=== PATIENT | female | born 1990 | race Caucasian/White ===

== ENCOUNTER 2016-09-25 23:31 | Emergency (ER) | payer SELFPAY ==
[2016-09-25 23:49] VITALS: RESP 16; TEMP 97.4
--- NOTE | 2016-09-26 01:11 | ED ---
General Adult HPI - General Source: patient, family, police, RN notes reviewed Mode of arrival: ambulatory Limitations: no limitations <Fercho Ann - Last Filed: 09/26/16 01:12> <Morris Delanye - Last Filed: 09/26/16 05:48> - General Chief complaint: Psychiatric Symptoms Stated complaint: petition Time Seen by Provider: 09/26/16 00:23 - History of Present Illness Initial comments: Chief complaint and history of present illness is a 26-year-old female here with her sister. The patient had proximal 6 beers this evening breath alcohol use 0.118. Patient states that her boyfriend talk to an old girlfriend of his she got angry. She called a friend and told the friend that (Fercho Ann) - Related Data Home Medications Medication Instructions Recorded Confirmed No Known Home Medications [No 10/06/14 09/25/16 Known Home Medications] Allergies Allergy/AdvReac Type Severity Reaction Status Date / Time No Known Allergies Allergy Verified 09/25/16 23:49 Review of Systems ROS Other: All systems not noted in ROS Statement are negative. <Fercho Ann - Last Filed: 09/26/16 01:12> ROS Other: All systems not noted in ROS Statement are negative. <Morris Delaney - Last Filed: 09/26/16 05:48> ROS Statement: Those systems with pertinent positive or pertinent negative responses have been documented in the HPI. Review of systems currently no headache or chest pain or shortness of breath no GI/ problems and denying any depression or psychological issues or if she or problems at this time denies any suicidal thoughts. States she drank too much and said things he shouldn't have said didn't mean. All systems reviewed. Past medical problems depression proximally one year ago and lasted several months. History includes G3 para 2 with one spontaneous . Not at this time. Surgeries 1 D&C and ear tubes as an . Family history father has prostate cancer. Patient denies ALLERGIES denies smoking drinks approximately 6 beers per week. (Fercho Ann) Past Medical History Additional Past Medical History / Comment(s): OB history: First was a vaginal delivery 7#14 oz in 2009. Second was a spontaneous . This is her third and she's had care with me since 10 weeks gestation. Her blood type is A+, antibodies negative, rubella immune, RPR nonreactive, hepatitis B-. Normal 1 hour glucose tolerance test and GBS positive. History of Any Multi-Drug Resistant Organisms: None Reported Past Surgical History: No Surgical Hx Reported Additional Past Surgical History / Comment(s): pt had d & c in september, Past Anesthesia/Blood Transfusion Reactions: No Reported Reaction Additional Past Anesthesia/Blood Transfusion Reaction / Comment(s): never had anesthesia Past Psychological History: No Psychological Hx Reported Smoking Status: Never smoker Past Alcohol Use History: Occasional Past Drug Use History: None Reported - Past Family History Father Family Medical History: Hypertension <Fercho Ann - Last Filed: 09/26/16 01:12> General Exam Limitations: no limitations <Fercho Ann - Last Filed: 09/26/16 01:12> <Morris Delaney - Last Filed: 09/26/16 05:48> - General Exam Comments Initial Comments: General: The patient is awake and alert, in no distress, and does not appear acutely ill. Currently denying any thoughts of hurting herself. States she hasn't wanted to drink fairly when she made those statements to friends that she wanted to hurt herself. She denying at this time. Her sisters at bedside stating she does not believe her sister meant it feels comfortable if she goes home with her. Vital signs show temperature 97.4 pulse 80 respiratory rate 16 pulse ox 90% room air blood pressure 170 over a 9. Elevated systolic and diastolic noted. The patient will be advised to follow-up with her family physician within the next 1-4 weeks. Eye: Pupils are equal, round and reactive to light, extra-ocular movements are intact ; there is normal conjunctiva bilaterally. No signs of icterus. Ears, nose, mouth and throat: There are moist mucous membranes and no oral lesions. Neck: The neck is supple, there is no tenderness , no anterior cervical lymphadenopathy. Cardiovascular: There is a regular rate and rhythm. No murmur, rub or gallop is appreciated. Respiratory: Lungs are clear to auscultation, respirations are non-labored, breath sounds are equal. No wheezes, stridor, rales, or rhonchi. Gastrointestinal: Soft, non-distended, non-tender abdomen without masses or organomegaly noted. There is no rebound or guarding present. No CVA tenderness. Bowel sounds are unremarkable. Back: There is no tenderness to palpation in the midline. There is no obvious deformity. No rashes noted. Musculoskeletal: Normal ROM, no tenderness, There is no pedal edema. There is no calf tenderness or swelling. Sensation intact. Pulses equal bilaterally 2+. Neurological: CN II-XII intact, There are no obvious motor or sensory deficits. Coordination appears grossly intact. Speech is normal. No neuro deficits Skin: Skin is warm and dry and no rashes or lesions are noted. Psychiatric: Cooperative, appropriate mood & affect, normal judgment. States she had intoxicated earlier wanted to hurt her boyfriend because he talked little girl friend. She made statements of friend and her friend fill out a petition because she is afraid she might harm herself. Patient's denying any problems at this time. Patient is laughing staying she made a stupid statement and is willing to talk to psychiatric nurse. (Fercho Ann) Medical Decision Making <Fercho Ann - Last Filed: 09/26/16 01:12> <Morris Delaney - Last Filed: 09/26/16 05:48> - Medical Decision Making Final disposition will be determined by Dr. Delaney. (Fercho Ann) Patient was seen by mental health services who recommends discharge. Patient reexamined and resting comfortably at bedside. Patient denies suicidal ideation and does contract for safety. (Morris Delaney) - Lab Data Lab Results 09/25/16 09/25/16 Range/Units 23:55 23:55 Urine HCG, Qual Not Detected (Not Detectd) Urine Opiates Screen Not Detected (NotDetected) Ur Oxycodone Screen Not Detected (NotDetected) Urine Methadone Screen Not Detected (NotDetected) Ur Propoxyphene Screen Not Detected (NotDetected) Ur Barbiturates Screen Not Detected (NotDetected) U Tricyclic Antidepress Not Detected (NotDetected) Ur Phencyclidine Scrn Not Detected (NotDetected) Ur Amphetamines Screen Not Detected (NotDetected) U Methamphetamines Scrn Not Detected (NotDetected) U Benzodiazepines Scrn Not Detected (NotDetected) Urine Cocaine Screen Not Detected (NotDetected) U Marijuana (THC) Screen Not Detected (NotDetected) Disposition <Fercho Ann - Last Filed: 09/26/16 01:12> <Morris Delaney - Last Filed: 09/26/16 05:48> Clinical Impression: Alcohol intoxication, Depression Disposition: HOME SELF-CARE Condition: Stable Instructions: Depression (ED), Suicide Prevention for Adults (ED), Alcohol Intoxication (ED) Additional Instructions: Avoid alcohol. Please follow-up with your primary care physician in the next day or 2 for recheck. Return for thoughts of harming herself or others, worsening symptoms or other concerns. Referrals: Jody Hernandez DO [Primary Care Provider] - 1-2 days Nicholas Win DO [Medical Doctor] - 1-2 days
[2016-09-26 06:09] VITALS: BP 129/77; PULSE 78
== END 2016-09-26 06:08 | disposition home or self-care (01) ==
LOC: EC 23:31
DX: F10.129 Alcohol abuse with intoxication, unspecified (principal); Y90.5 Blood alcohol level of 100-119 mg/100 ml
CPT/HCPCS: 80306; 81025; 82075; 99284

== ENCOUNTER 2018-01-12 12:41 | Outpatient (CLI) | payer OTHER ==
[2018-01-12 13:21] VITALS: BP 116/76; PULSE 91; RESP 16; TEMP 97.8
--- NOTE | 2018-01-12 16:41 | P.MSEPDOC ---
Presenting Problems - Arrival Data Date of Arrival on Unit: 01/12/18 Time of Arrival on Unit: 12:40 Mode of Transport: Ambulatory - Complaint OB-Reason for Admission/Chief Complaint: Rule Out PROM Comment: Pt states clear fluid at 0915 following intercourse, no continues leaking, did not have to wear pad or change underwear throughout day. Medical History - Information : 4 Para: 2 Term: 2 : 0 Abortions: Spontaneous or Elective: 1 Number of Living Children: 2 - Gestational Age Gestational Age by ZAK (wks/days): 35 Weeks and 1 Days Review of Systems - Review of Systems Constitutional: No problems Breast: No problems ENT: No problems Cardiovascular: No problems Respiratory: No problems Gastrointestinal: No problems Genitourinary: No problems Musculoskeletal: No problems Neurological: No problems Skin: No problems Vital Signs - Temperature Temperature: 97.8 F Temperature Source: Temporal Artery Scan - Pulse Pulse Oximetery Pulse Rate: 91 Pulse Assessment Method: Pulse Oximetry - Respirations Respiratory Rate: 16 Oxygen Delivery Method: Room Air O2 Sat by Pulse Oximetry: 96 - Blood Pressure Right Arm Sitting Blood Pressure: 116/76 Blood Pressure Mean: 89 Blood Pressure Source: Automatic Cuff Medical Screen Scoring (Pre) - Cervical Exam Dilation: Exam Deferred Effacement: Exam Deferred Membranes: Intact - Uterine Contractions Frequency: N/A Duration: N/A Intensity: N/A - Maternal Vital Signs Maternal Temperature: N/A Maternal Blood Pressure: N/A Signs of Preeclampsia: N/A Maternal Respirations: N/A - Maternal Trauma Maternal Trauma: N/A - Assessment Baseline FHR: 135 Heart Rate - NICHD Category: Category I (Normal) = 0 NST: Reactive Position: N/A Station: N/A - Total Score Total Score (Pre): 0 - Level of Risk Level of Risk: N/A Physician Notification (Pre) - Physician Notified Physician Notified Date: 01/12/18 Physician Notified Time: 13:10 Physician/Practitioner Notifed:: Albino Spoke With: Albino - Notification Comment Comment: Spk c\Dr. Posada, advsd , 35 07/23, possible PROM after intercourse , amnisure negative, no contractions, reactive NST. Appt with Dr. Hernandez Monday. Disposition - Disposition OB Disposition: Physician follow up in office, Discharge to home, Written follow up instructions reviewed Discharge Date: 01/12/18 Discharge Time: 13:15 I agree with the RN Medical Screening Exam: Yes Risk & Benefit of care provided described in d/c instruction: Yes Diagnosis: FALSE LABOR BEFORE 37 COMPLETED WEEKS OF GEST, THIRD TRI
== END 2018-01-12 13:15 | disposition home or self-care (01) ==
LOC: FBPOP 12:41
PROVIDERS: ATTEND Obstetrics & Gynecology
DX: O47.03 False labor before 37 completed weeks of gestation, third trimester (principal); Z3A.35 35 weeks gestation of pregnancy
CPT/HCPCS: 59025; 84112; 99213

== ENCOUNTER 2018-02-19 16:22 | Inpatient (IN) | payer OTHER ==
[2018-02-19] MEDS ORDERED: METHYLERGONOVINE 0.2 MG/ML 1 ML AMP IM PRN (16:26)
[2018-02-19] MEDS ORDERED: LIDOCAINE 1% (PF) 10 MG/ML (30 ML SDV) SQ PRN (16:26)
[2018-02-19] MEDS ORDERED: TERBUTALINE 1 MG/ML VIAL SQ PRN (16:26)
[2018-02-19] MEDS ORDERED: CARBOPROST TROMETHAMINE 250 MCG/ML 1 ML AMP IM PRN (16:26)
[2018-02-19] MEDS ORDERED: OXYTOCIN 10 UNIT/ML 1 ML VIAL IM PRN (16:26)
[2018-02-19] MEDS ORDERED: OXYTOCIN 20 UNITS/1000 ML NS 1,000 ML IV SCH ×2 (16:30→18:00)
[2018-02-19] MEDS ORDERED: AMPICILLIN 2,000 MG in SODIUM CHLORIDE 0.9% 100 ML IVPB STA (16:34)
[2018-02-19 16:48] VITALS: BMI 30.4
--- NOTE | 2018-02-19 16:50 | P.HPOB ---
History of Present Illness H&P Date: 02/19/18 Chief Complaint: Labor 27 year old presents at 40 weeks 4 days in labor. Her cervix is 6 cm dilated, 100%effaced and -2 station. She is kerry irregularly and heart tones are 120-125 with moderate variability and reactive. Review of Systems All systems: negative Constitutional: Denies chills, Denies fever Eyes: denies blurred vision, denies pain Ears, nose, mouth and throat: Denies headache, Denies sore throat Cardiovascular: Denies chest pain, Denies shortness of breath Respiratory: Denies cough Gastrointestinal: Denies abdominal pain, Denies diarrhea, Denies nausea, Denies vomiting Genitourinary: Denies dysuria, Denies hematuria Musculoskeletal: Denies myalgias Integumentary: Denies pruritus, Denies rash Neurological: Denies numbness, Denies weakness Psychiatric: Denies anxiety, Denies depression Endocrine: Denies fatigue, Denies weight change Past Medical History Additional Past Medical History / Comment(s): OB history: First was a vaginal delivery 7#14 oz in 2009. Second was a spontaneous . Third was a vaginal delivery 7#11oz. This is her fourth and she's had care with me since 14 weeks gestation. Her blood type is A+, antibodies negative, rubella non-immune, RPR nonreactive, hepatitis B-. Normal 1 hour glucose tolerance test and GBS positive. History of Any Multi-Drug Resistant Organisms: None Reported Additional Past Surgical History / Comment(s): pt had d & c in september, Past Anesthesia/Blood Transfusion Reactions: No Reported Reaction Past Psychological History: No Psychological Hx Reported Smoking Status: Never smoker Past Alcohol Use History: None Reported Past Drug Use History: None Reported - Past Family History Father Family Medical History: Hypertension Medications and Allergies Home Medications Medication Instructions Recorded Confirmed Type Pedi Multivit No.25/Folic Acid 300 mcg PO DAILY 02/19/18 02/19/18 History [Flintstones Multivit Chew Tab] Allergies Allergy/AdvReac Type Severity Reaction Status Date / Time No Known Allergies Allergy Verified 02/19/18 16:32 Exam Osteopathic Statement: *. No significant issues noted on an osteopathic structural exam other than those noted in the History and Physical/Consult. Intake and Output 02/19/18 02/19/18 02/19/18 06:59 14:59 22:59 Other: Weight 83.007 kg Heart: Regular rate and rhythm Lungs: Clear to auscultation bilaterally Abdomen: Soft, nontender Extremities: Negative Homans sign Assessment and Plan (1) Normal labor Current Visit: Yes Status: Acute Code(s): O80 - ENCOUNTER FOR FULL-TERM UNCOMPLICATED DELIVERY; Z37.9 - OUTCOME OF DELIVERY, UNSPECIFIED SNOMED Code(s ): 82494636 Plan: 1. Admit to family place 2. Antibiotics for GBS prophylaxis 3. Epidural for pain management 4. Anticipate normal vaginal delivery
[2018-02-19 16:52] LABS: Basophils % (A) 0 %; Eosinophils # (A) 0.1 k/uL (0-0.7); Eosinophils % (A) 1 %; HCT 34.9 % (34.0-46.0); HGB 10.8 gm/dL (11.4-16.0); Lymphocytes # (A) 1.7 k/uL (1.0-4.8); Lymphocytes % (A) 20 %; MCH 27.1 pg (25.0-35.0); MCV 87.1 fL (80.0-100.0); Monocytes # (A) 0.4 k/uL (0-1.0); Monocytes % (A) 5 %; Neutrophils # (A) 5.7 k/uL (1.3-7.7); Neutrophils % (A) 69 %; Platelet Count 268 k/uL (150-450); RBC 4.01 m/uL (3.80-5.40); RDW 14.2 % (11.5-15.5); WBC 8.2 k/uL (3.8-10.6)
[2018-02-19] MEDS: LACTATED RINGERS 1,000 ML IV SCH ×2 (16:54→16:59)
[2018-02-19] MEDS ORDERED: LANOLIN CREAM 5 GM TUBE TOPICAL PRN (17:49)
[2018-02-19] MEDS ORDERED: SIMETHICONE 80 MG CHEWABLE PO PRN (17:49)
[2018-02-19] MEDS ORDERED: diphenhydrAMINE 25 MG CAP PO PRN (17:49)
[2018-02-19] MEDS ORDERED: IBUPROFEN 600 MG TAB PO PRN (17:49)
[2018-02-19] MEDS ORDERED: WITCH HAZEL 1 EACH MED..PAD TOPICAL PRN (17:49)
[2018-02-19] MEDS ORDERED: ZOLPIDEM 5 MG TAB PO PRN (17:49)
[2018-02-19] MEDS ORDERED: HYDROcodone/APAP 5-325MG 1 EACH TAB PO PRN (17:49)
[2018-02-19] MEDS ORDERED: diphenhydrAMINE 50 MG CAP PO PRN (17:49)
[2018-02-19] MEDS ORDERED: diphenhydrAMINE 50 MG/ML 1 ML VIAL IVP PRN ×2 (17:49)
[2018-02-19] MEDS ORDERED: ACETAMINOPHEN TAB 325 MG TAB PO PRN (17:49)
[2018-02-19] MEDS ORDERED: HYDROCORTISONE 2.5% RECTAL CREAM 30 GM TUBE RECTAL PRN (17:49)
[2018-02-19] MEDS ORDERED: BENZOCAINE/MENTHOL SPRAY 1 GM/SPRAY AEROSOL TOPICAL PRN (17:49)
[2018-02-19] MEDS ORDERED: ROPIVACAINE 100 MG, fentaNYL (PF) 200 MCG in SODIUM CHLORIDE 0.9% 76 ML EPIDURAL ONE (18:48)
[2018-02-19] MEDS: SENNOSIDES-DOCUSATE SODIUM 1 EACH TAB PO SCH (20:27)
[2018-02-19] MEDS ORDERED: AMPICILLIN 1,000 MG in SODIUM CHLORIDE 0.9% 50 ML IVPB SCH (21:00)
--- NOTE | 2018-02-20 08:42 | P.PROBDLV ---
Vaginal Delivery Note - . Vaginal Delivery Note: 27-year-old presents at 40 weeks and 4 days in active labor. Her cervix is 6 cm dilated, 100% effaced, and -2 station. She is kerry irregularly. heart tones 120-125 with moderate variability and reactive. She did get an epidural for pain control and IV antibiotics were started for GBS prophylaxis. Amniotomy was performed at 1730, clear fluid noted. At this time she became completely dilated at 1733. She pushed, and delivered a viable female infant over intact perineum under epidural anesthesia at 1739. Head delivered OA, anterior shoulder delivered gentle downward traction, but posterior shoulder and rest of body. Nose and mouth bulb suctioned, cord clamped and cut, placed on mother's abdomen. Apgars 9, 10, weight 7 lbs. 13 oz. Placenta delivered spontaneously, intact with three-vessel cord at 1744. Vagina, cervix, and perineum were inspected. No lacerations noted. Estimated blood loss 100 mL. Mother and baby in stable condition.
--- NOTE | 2018-02-20 08:44 | P.PNOBGVD ---
Subjective - Subjective Principal diagnosis: Status post normal vaginal delivery day #1 Interval history: Patient seen and examined. She denies nausea, vomiting, chest pain, shortness of breath or calf pain. Patient reports: Reports appetite normal, Reports voiding normally, Reports pain well controlled, Reports ambulating normally [place]: doing well Objective - Latest Vital Signs Latest vital signs: Vital Signs Temp Pulse Resp BP Pulse Ox 02/19/18 20:00 82 15 149/88 02/19/18 19:19 58 L 15 129/84 02/19/18 18:49 73 17 125/76 02/19/18 18:34 98.0 F 75 18 119/77 02/19/18 18:19 82 17 130/82 02/19/18 18:04 98.0 F 82 18 124/73 96 02/19/18 17:49 82 18 124/73 96 02/19/18 16:32 97.6 F 86 18 140/94 98 Intake and Output 02/19/18 02/20/18 02/20/18 22:59 06:59 14:59 Other: # Voids 1 Weight 83.007 kg - Exam Lungs: bilateral: normal Chest: Normal S1, Normal S2 Extremities: Present: normal Abdomen: Present: normal appearance, soft Uterus: Present: normal, firm - Labs Labs: Abnormal Lab Results - Last 24 Hours (Table) 02/19/18 Range/Units 16:35 Hgb 10.8 L (11.4-16.0) gm/dL Assessment and Plan (1) Normal labor Current Visit: Yes Status: Resolved Code(s): O80 - ENCOUNTER FOR FULL-TERM UNCOMPLICATED DELIVERY; Z37.9 - OUTCOME OF DELIVERY, UNSPECIFIED SNOMED Code(s ): 22884625 (2) Normal vaginal delivery Current Visit: No Status: Acute Code(s): O80 - ENCOUNTER FOR FULL-TERM UNCOMPLICATED DELIVERY SNOMED Code(s): 70979179 Plan: 1. Continue care 2. Pediatrics wants to keep the baby for observation for 48 hours due to the fact that the mother did not get 4 hours of IV antibiotics for her GBS positive status. Therefore, mother and baby will be discharged tomorrow.
[2018-02-20] MEDS: SENNOSIDES-DOCUSATE SODIUM 1 EACH TAB PO SCH (09:26)
[2018-02-20] MEDS ORDERED: MEASLES-MUMPS-RUBELLA VACC/PF 12,500 UNIT/0.5 ML VIAL SQ ONE (14:30)
[2018-02-21 00:39] VITALS: RESP 16
--- NOTE | 2018-02-21 07:35 | P.DS ---
Providers Date of admission: 02/19/18 16:22 Expected date of discharge: 02/21/18 Attending physician: Jody Hernandez Primary care physician: Stated None - Discharge Diagnosis(es) (1) Normal labor Current Visit: Yes Status: Resolved (2) Normal vaginal delivery Current Visit: No Status: Acute Hospital Course: Pt presented in active labor. She underwent an normal vaginal delivery. Her pp course was uncomplicated. She denies N/V, F/C, CP, SOB or calf pain. She will be discharged home PPD #2 in stable condition to follow up with me in 6 weeks. Plan - Discharge Summary New Discharge Prescriptions: New Ibuprofen [Motrin] 600 mg PO Q6HR PRN #30 tab PRN Reason: Mild Pain Or Fever >= 100.5 No Action Pedi Multivit No.25/Folic Acid [Flintstones Multivit Chew Tab] 300 mcg PO DAILY Discharge Medication List Pedi Multivit No.25/Folic Acid [Flintstones Multivit Chew Tab] 300 mcg PO DAILY 02/19/18 [History] Ibuprofen [Motrin] 600 mg PO Q6HR PRN #30 tab 02/20/18 [Rx] Follow up Appointment(s)/Referral(s): Jody Hernandez DO [Doctor of Osteopathic Medicine] - 6 Weeks Discharge Disposition: HOME SELF-CARE
[2018-02-21] MEDS: SENNOSIDES-DOCUSATE SODIUM 1 EACH TAB PO SCH ×2 (14:45→14:46)
[2018-02-21 16:13] VITALS: BP 137/85; PULSE 77; TEMP 98
== END 2018-02-21 19:15 | disposition home or self-care (01) | DRG 775 ==
LOC: 4FBP 16:22
PROVIDERS: ADMIT Obstetrics & Gynecology; ATTEND Obstetrics & Gynecology
PROC: 10E0XZZ Delivery of Products of Conception, External Approach (ICD-10-PCS; principal; 2018-02-19)
PROC: 00HU33Z Insertion of Infusion Device into Spinal Canal, Percutaneous Approach (ICD-10-PCS; principal; 2018-02-19)
PROC: 3E0R3NZ Introduction of Analgesics, Hypnotics, Sedatives into Spinal Canal, Percutaneous Approach (ICD-10-PCS; principal; 2018-02-19)
PROC: 10907ZC Drainage of Amniotic Fluid, Therapeutic from Products of Conception, Via Natural or Artificial Opening (ICD-10-PCS; principal; 2018-02-19)
DX: O48.0 Post-term pregnancy (principal); Z37.0 Single live birth; Z3A.40 40 weeks gestation of pregnancy; O99.824 Streptococcus B carrier state complicating childbirth; Z82.49 Family history of ischemic heart disease and other diseases of the circulatory system
CPT/HCPCS: 85025; 90707

== ENCOUNTER 2020-08-24 01:07 | Inpatient (IN) | payer BC, OTHER ==
[2020-08-24] MEDS ORDERED: DIPH,PERTUS(ACELL)TETVAC-LF 0.5 ML VIAL IM ONE (01:24)
[2020-08-24] MEDS ORDERED: SODIUM CHLORIDE 0.9% 1,000 ML IV ONE (01:26)
[2020-08-24] MEDS ORDERED: BACITRACIN OINT 1 EACH PACKET TOPICAL ONE (01:31)
[2020-08-24] MEDS ORDERED: LIDOCAINE 1% INJ 10MG/ML (20 ML MDV) SQ ONE (01:31)
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
[2020-08-24 01:56] LABS: Basophils # (A) 0.1 k/uL (0-0.2); Basophils % (A) 1 %; Eosinophils # (A) 0.1 k/uL (0-0.7); Eosinophils % (A) 1 %; HCT 41.3 % (34.0-46.0); HGB 13.8 gm/dL (11.4-16.0); Lymphocytes # (A) 3.8 k/uL (1.0-4.8); Lymphocytes % (A) 31 %; MCHC 33.5 g/dL (31.0-37.0); MCV 98.4 fL (80.0-100.0); Mean Platelet Volume 7.6; Monocytes # (A) 0.5 k/uL (0-1.0); Monocytes % (A) 4 %; Neutrophils # (A) 7.5 k/uL (1.3-7.7); Neutrophils % (A) 62 %; Platelet Count 338 k/uL (150-450); RBC 4.19 m/uL (3.80-5.40); RDW 12.2 % (11.5-15.5)
[2020-08-24 02:07] LABS: ALT 32 U/L (4-34); AST 60 U/L (14-36); African American GFR (CKD) >90 (>60 ml/min/1.73 sqM); Albumin 4.7 g/dL (3.5-5.0); Alkaline Phosphatase 37 U/L (38-126); Anion Gap 11 mmol/L; Blood Urea Nitrogen 7 mg/dL (7-17); Calcium 9.2 mg/dL (8.4-10.2); Carbon Dioxide 25 mmol/L (22-30); Chloride 106 mmol/L (98-107); Glucose 139 mg/dL (74-99); Non-African American GFR(CKD) 85 (>60 ml/min/1.73 sqM); Potassium 3.6 mmol/L (3.5-5.1); Sodium 142 mmol/L (137-145); Total Bilirubin 0.4 mg/dL (0.2-1.3); Total Protein 7.3 g/dL (6.3-8.2)
[2020-08-24 02:13] LABS: Alcohol 200 mg/dL
[2020-08-24 02:16] LABS: Prothrombin Time 10.8 sec (9.0-12.0)
[2020-08-24 02:20] LABS: Partial Thromboplastin Time 21.6 sec (22.0-30.0)
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
[2020-08-24] MEDS ORDERED: MORPHINE SULFATE 2 MG/ML SYRINGE IVP STA (02:51)
[2020-08-24] MEDS ORDERED: ONDANSETRON 4 MG/2 ML VIAL IVP STA (02:52)
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
[2020-08-24 03:32] LABS: Appearance,Urine Clear (Clear); Bilirubin,Urine Negative (Negative); Blood,Urine Moderate (Negative); Color,Urine Light Yellow; Glucose,Urine (UA) Negative (Negative); Ketones,Urine Negative (Negative); Leukocyte Esterase,Urine Negative (Negative); Mucus,Urine Rare /hpf; Nitrite,Urine Negative (Negative); Protein,Urine Negative (Negative); RBC,Urine 3 /hpf (0-5); Specific Gravity,Urine 1.031 (1.001-1.035); Urobilinogen,Urine <2.0 mg/dL (<2.0); WBC,Urine 1 /hpf (0-5)
[2020-08-24 03:47] LABS: Amphetamine Screen,Urine Not Detected (NotDetected); Barbiturate Screen,Urine Not Detected (NotDetected); Benzodiazepines Screen,Urine Not Detected (NotDetected); Cocaine Screen,Urine Not Detected (NotDetected); Methadone Screen, Urine Not Detected (NotDetected); Opiate Screen,Urine Detected (NotDetected); Oxycodone Screen, Urine Not Detected (NotDetected); Phencyclidine Screen,Urine Not Detected (NotDetected); Tricyclic Antidepressant,Urine Not Detected (NotDetected); Urn Cannabinoid Scrn Not Detected (NotDetected)
[2020-08-24] MEDS ORDERED: ONDANSETRON 4 MG/2 ML VIAL IVP PRN (03:55)
[2020-08-24] MEDS ORDERED: NALOXONE 0.4 MG/ML 1 ML VIAL IV PRN (03:55)
[2020-08-24] MEDS ORDERED: MORPHINE SULFATE 2 MG/ML SYRINGE IVP PRN (03:58)
[2020-08-24] MEDS ORDERED: SODIUM CHLORIDE 0.9% 1,000 ML IV SCH (04:00)
[2020-08-24 04:24] LABS: HCT 37.5 % (34.0-46.0); HGB 12.7 gm/dL (11.4-16.0); MCH 33.5 pg (25.0-35.0); MCHC 33.9 g/dL (31.0-37.0); MCV 98.8 fL (80.0-100.0); Mean Platelet Volume 7.2; Platelet Count 243 k/uL (150-450); RDW 12.8 % (11.5-15.5); WBC 18.6 k/uL (3.8-10.6)
[2020-08-24 07:56] LABS: HCT 37.2 % (34.0-46.0); HGB 12.4 gm/dL (11.4-16.0); MCH 33.1 pg (25.0-35.0); MCHC 33.4 g/dL (31.0-37.0); MCV 98.8 fL (80.0-100.0); Mean Platelet Volume 7.5; Platelet Count 250 k/uL (150-450); RBC 3.76 m/uL (3.80-5.40); RDW 12.8 % (11.5-15.5); WBC 12.7 k/uL (3.8-10.6)
[2020-08-24 08:06] LABS: ALT 32 U/L (4-34); AST 60 U/L (14-36); African American GFR (CKD) >90 (>60 ml/min/1.73 sqM); Alkaline Phosphatase 33 U/L (38-126); Anion Gap 9 mmol/L; Blood Urea Nitrogen 7 mg/dL (7-17); Calcium 8.6 mg/dL (8.4-10.2); Carbon Dioxide 24 mmol/L (22-30); Chloride 107 mmol/L (98-107); Glucose 108 mg/dL (74-99); Lipase 51 U/L (23-300); Non-African American GFR(CKD) >90 (>60 ml/min/1.73 sqM); Potassium 4.1 mmol/L (3.5-5.1); Sodium 140 mmol/L (137-145); Total Bilirubin 0.4 mg/dL (0.2-1.3); Total Protein 6.4 g/dL (6.3-8.2)
[2020-08-24 08:44] VITALS: PULSE 97
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
[2020-08-24 13:31] LABS: HCT 35.5 % (34.0-46.0); HGB 12.3 gm/dL (11.4-16.0); MCH 34.2 pg (25.0-35.0); MCHC 34.6 g/dL (31.0-37.0); MCV 98.9 fL (80.0-100.0); Mean Platelet Volume 7.2; Platelet Count 222 k/uL (150-450); RBC 3.59 m/uL (3.80-5.40); RDW 12.2 % (11.5-15.5); WBC 10.7 k/uL (3.8-10.6)
[2020-08-24 14:40] VITALS: BP 104/63; RESP 18; TEMP 98.6
--- NOTE | 2020-08-24 15:23 | P.PN ---
Progress Note - Text Progress Note Date: 08/24/20 Serial abdominal exam performed at 1230PM. Patient was feeling better, no complaints of abdominal pain. Abdomen was soft, nontender non distended. VSSAF. Afternoon bloodwork is improved with stable Hgb, no signs of small bowel injury clinically or active bleeding. patient can trial diet and if she tolerates will be able to be DC home today with instructions to follow up in ER if she has increasing abdominal pain, nausea/vomiting, light headed or dizzy, rapid heart rate, Fevers/chills. She understood this and agreed with the plan. She will follow up with ortho regarding her ankle/foot and wrist.
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
== END 2020-08-24 17:10 | disposition home or self-care (01) | DRG 914 ==
LOC: EC 01:07 → 6NMEDSUR 04:10 → OBSVTOIN 11:29
PROVIDERS: ADMIT Student in an Organized Health Care Education/Training Program; ATTEND Student in an Organized Health Care Education/Training Program
PROC: 0HQ7XZZ Repair Abdomen Skin, External Approach (ICD-10-PCS; principal; 2020-08-24)
PROC: 0HQDXZZ Repair Right Lower Arm Skin, External Approach (ICD-10-PCS; principal; 2020-08-24)
PROC: 3E0234Z Introduction of Serum, Toxoid and Vaccine into Muscle, Percutaneous Approach (ICD-10-PCS; principal; 2020-08-24)
PROC: 2W3SX1Z Immobilization of Right Foot using Splint (ICD-10-PCS; principal; 2020-08-24)
DX: S36.899A Unspecified injury of other intra-abdominal organs, initial encounter (principal); S92.341A Displaced fracture of fourth metatarsal bone, right foot, initial encounter for closed fracture; S92.212A Displaced fracture of cuboid bone of left foot, initial encounter for closed fracture; S63.501A Unspecified sprain of right wrist, initial encounter; S63.502A Unspecified sprain of left wrist, initial encounter; S61.511A Laceration without foreign body of right wrist, initial encounter; S71.111A Laceration without foreign body, right thigh, initial encounter; R31.9 Hematuria, unspecified; Z23 Encounter for immunization; Z20.822 Contact with and (suspected) exposure to COVID-19; Z86.19 Personal history of other infectious and parasitic diseases; V47.6XXA Car passenger injured in collision with fixed or stationary object in traffic accident, initial encounter; Y92.410 Unspecified street and highway as the place of occurrence of the external cause; Z82.49 Family history of ischemic heart disease and other diseases of the circulatory system
CPT/HCPCS: 12004; 29515; 36415; 51701; 70450; 70486; 71260; 72125; 74177; 80053; 80306; 80320; 81001; 81025; 83605; 83690; 84484; 85025; 85027; 85610; 85730; 86850; 86900; 86901; 87635; 90715; 93005; 96361; 96374; 96375; 99291

== ENCOUNTER 2021-10-30 04:29 | Emergency (ER) | payer BC, OTHER ==
[2021-10-30 04:40] VITALS: TEMP 98.3
[2021-10-30] MEDS ORDERED: DIPH,PERTUS(ACELL)TETVAC-LF 0.5 ML VIAL IM ONE (04:53)
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
[2021-10-30] MEDS ORDERED: traMADol 50 MG STARTER PACK 3 TAB BTL PO STA (05:44)
[2021-10-30 06:09] VITALS: BP 127/81; PULSE 89; RESP 18
== END 2021-10-30 06:09 | disposition home or self-care (01) ==
LOC: EC 04:29
DX: S00.83XA Contusion of other part of head, initial encounter (principal); Y04.8XXA Assault by other bodily force, initial encounter
CPT/HCPCS: 70486; 90471; 90715; 99285

== ENCOUNTER 2024-02-12 00:47 | Emergency (ER) | payer BC, OTHER ==
[2024-02-12 00:53] VITALS: TEMP 97.8
[2024-02-12] MEDS: HYDROmorphone 1 MG/ML 1 ML SYRINGE IM STA (01:19)
[2024-02-12] MEDS ORDERED: cefTRIAXone 250 MG VIAL IM STA (01:27)
--- NOTE | 2024-02-12 01:32 | ED ---
Female Urogenital HPI - General Chief complaint: Urogenital Stated complaint: Pelvic pain Time Seen by Provider: 02/12/24 00:58 Source: patient, RN notes reviewed Mode of arrival: ambulatory Limitations: no limitations - History of Present Illness Initial comments: This is a 33-year-old female presents emergency department chief complaint of pelvic pain. Patient states that she was having intercourse this evening when she began to experience severe pelvic pain. She states that pain is similar to when she had a IUD that was misplaced previously. Patient denies symptoms of dysuria, hematuria, increase in urinary frequency or urgency. She denies diarrhea or constipation. Denies fevers, chills, nausea, vomiting. Has a Mirena IUD in place that was put in approximately 1 year ago. Her last menstrual cycle was approximately 1 to 2 weeks ago and states that when she does experience a menstrual cycle they are very light. - Related Data Previous Rx's Medication Instructions Recorded HYDROcodone/APAP 5-325MG [[place] 1 tab PO Q6HR PRN #21 tab 08/24/20 5-325] Doxycycline [Vibramycin] 100 mg PO BID #20 capsule 02/12/24 metroNIDAZOLE [Flagyl] 500 mg PO BID #28 tab 02/12/24 Allergies Allergy/AdvReac Type Severity Reaction Status Date / Time No Known Allergies Allergy Verified 02/12/24 00:50 Review of Systems ROS Statement: Those systems with pertinent positive or pertinent negative responses have been documented in the HPI. ROS Other: All systems not noted in ROS Statement are negative. Past Medical History Past Medical History: No Reported History Additional Past Medical History / Comment(s): OB history: First was a vaginal delivery 7#14 oz in 2009. Second was a spontaneous . Third was a vaginal delivery 7#11oz. This is her fourth and she's had care with me since 14 weeks gestation. Her blood type is A+, antibodies negative, rubella non-immune, RPR nonreactive, hepatitis B-. Normal 1 hour glucose tolerance test and GBS positive. History of Any Multi-Drug Resistant Organisms: None Reported Past Surgical History: Breast Surgery Additional Past Surgical History / Comment(s): pt had d & c in september, Past Anesthesia/Blood Transfusion Reactions: No Reported Reaction Past Psychological History: No Psychological Hx Reported Smoking Status: Vaper Past Alcohol Use History: Occasional Past Drug Use History: None Reported - Past Family History Father Family Medical History: Hypertension Additional Family Medical History / Comment(s): prostate cancer General Exam Limitations: no limitations General appearance: alert, in no apparent distress Head exam: Present: atraumatic, normocephalic, normal inspection Eye exam: Present: normal appearance, PERRL, EOMI. Absent: scleral icterus, conjunctival injection, periorbital swelling ENT exam: Present: normal exam, mucous membranes moist Neck exam: Present: normal inspection. Absent: tenderness, meningismus, lymphadenopathy Respiratory exam: Present: normal lung sounds bilaterally. Absent: respiratory distress, wheezes, rales, rhonchi, stridor Cardiovascular Exam: Present: regular rate, normal rhythm, normal heart sounds. Absent: systolic murmur, diastolic murmur, rubs, gallop, clicks GI/Abdominal exam: Present: soft, tenderness (Pelvic), normal bowel sounds. Absent: distended, guarding, rebound, rigid Speculum exam: Present: vaginal discharge, foreign body (tampon ) By manual exam: Present: uterine tenderness Extremities exam: Present: normal inspection, full ROM, normal capillary refill. Absent: tenderness, pedal edema, joint swelling, calf tenderness Back exam: Present: normal inspection Neurological exam: Present: alert, oriented X3, CN II-XII intact Psychiatric exam: Present: normal affect, normal mood Skin exam: Present: warm, dry, intact, normal color. Absent: rash Course Vital Signs 02/12/24 02/12/24 00:50 01:58 Temperature 97.8 F Pulse Rate 98 88 Respiratory 20 16 Rate Blood Pressure 125/85 119/80 O2 Sat by Pulse 97 99 Oximetry Medical Decision Making - Medical Decision Making Was pt. sent in by a medical professional or institution (, PA, NUTRITION TEACHER, urgent care, hospital, or long term...) When possible be specific @ -No Did you speak to anyone other than the patient for history (EMS, parent, family, police, friend...)? What history was obtained from this source @ -No Did you review nursing and triage notes (agree or disagree)? Why? @ -I reviewed and agree with nursing and triage notes Were old charts reviewed (outside hosp., previous admission, EMS record, old EKG, old radiological studies, urgent care reports/EKG's, long term records)? Report findings @ -No old charts were reviewed Differential Diagnosis (chest pain, altered mental status, abdominal pain women, abdominal pain men, vaginal bleeding, weakness, fever, dyspnea, syncope, headache, dizziness, GI bleed, back pain, seizure, CVA, palpatations, mental health, musculoskeletal)? @ -Differential Abdominal Pain Women: Appendicitis, Cholecystitis, diverticulosis, ischemic bowel, pancreatitis, hepatitis, UTI, gastroenteritis, AAA, incarcerated hernia, bowel obstruction, constipation, inflammatory bowel, hepatitis, peptic ulcer disease, splenic infarction, perforated viscus, vulvitis, ovarian torsion, PID, kidney stone, placenta abruption, this is not meant to be an all-inclusive list EKG interpreted by me (3pts min.). @ -none X-rays interpreted by me (1pt min.). @ -None done CT interpreted by me (1pt min.). @ -None done U/S interpreted by me (1pt. min.). @ -None done What testing was considered but not performed or refused? (CT, X-rays, U/S, labs)? Why? @ -None What meds were considered but not given or refused? Why? @ -None Did you discuss the management of the patient with other professionals (professionals i.e. , PA, NUTRITION TEACHER, lab, RT, psych nurse, social work instructor, moving picture operator, teacher, patient safety officer, case manager specialist)? Give summary @ -I discussed this case with my attending, Dr. Singh, who personally evaluated the patient and visualize the foreign body in the uterus and removed the retained tampon. Was smoking cessation discussed for >3mins.? @ -No Was critical care preformed (if so, how long)? @ -No Were there social determinants of health that impacted care today? How? (Homelessness, low income, unemployed, alcoholism, drug addiction, transpo rtation, low edu. Level, literacy, decrease access to med. care, half-way, rehab)? @ -No Was there de-escalation of care discussed even if they declined (Discuss DNR or withdrawal of care, Hospice)? DNR status @ -No What co-morbidities impacted this encounter? (DM, HTN, Smoking, COPD, CAD, Cancer, CVA, ARF, Chemo, Hep., AIDS, mental health diagnosis, sleep apnea, morbid obesity)? @ -None Was patient admitted / discharged? Hospital course, mention meds given and route, prescriptions, significant lab abnormalities, going to OR and other pertinent info. @Discharged. 33-year-old female with pelvic pain. On examination patient noted to have abdominal pain is most notable over the pelvic region. On speculum examination patient is noted to have a foreign body that is removed and consistent with a retained tampon. She also has mild vaginal discharge and there is a foul odor to this. Patient's IUD strings are noted to be in place coming from the cervix with no signs of dislodgment. She will be provided with antibiotics to cover for retained tampon. First dose of antibiotics in the emergency department and complete course of antibiotics sent to the pharmacy. All questions answered at bedside strict return parameters caesar the patient she is verbalized understanding. Case discussed with Undiagnosed new problem with uncertain prognosis? @ -No Drug Therapy requiring intensive monitoring for toxicity (Heparin, Nitro, Insulin, Cardizem)? @ -No Were any procedures done? @ -No Diagnosis/symptom? @ -retained tampon, pelvic pain Acute, or Chronic, or Acute on Chronic? @ -Acute Uncomplicated (without systemic symptoms) or Complicated (systemic symptoms)? @ -uncomplicated Side effects of treatment? @ -No Exacerbation, Progression, or Severe Exacerbation? @ -No Poses a threat to life or bodily function? How? (Chest pain, [place], NH, pneumonia, PE, COPD, DKA, ARF, appy, cholecystitis, CVA, Diverticulitis, Homicidal, Suicidal, threat to staff... and all critical care pts) @ -No Disposition Clinical Impression: Retained tampon Disposition: HOME SELF-CARE Condition: Good Instructions (If sedation given, give patient instructions): Pelvic Pain in Women (ED) Additional Instructions: complete full course of both medications as prescribed. Return to the emergency department for any new or worsening symptoms. Prescriptions: metroNIDAZOLE [Flagyl] 500 mg PO BID #28 tab Doxycycline [Vibramycin] 100 mg PO BID #20 capsule Is patient prescribed a controlled substance at d/c from ED?: No Referrals: None,Stated [Primary Care Provider] - 1-2 days Time of Disposition: 01:32
[2024-02-12] MEDS: metroNIDAZOLE 500 MG TAB PO STA (01:48)
[2024-02-12] MEDS: DOXYCYCLINE 100 MG CAP PO STA (01:48)
[2024-02-12] MEDS: cefTRIAXone 500 MG VIAL IM STA (01:48)
[2024-02-12 02:04] VITALS: BP 119/80; PULSE 88; RESP 16
== END 2024-02-12 02:04 | disposition home or self-care (01) ==
LOC: EC 00:47
DX: T19.2XXA Foreign body in vulva and vagina, initial encounter (principal); R10.2 Pelvic and perineal pain; F17.290 Nicotine dependence, other tobacco product, uncomplicated; W44.8XXA Other foreign body entering into or through a natural orifice, initial encounter
CPT/HCPCS: 99284; 96372 ×2; J0696; J1170